=== PATIENT | female | born 1995 | race Caucasian/White ===

== ENCOUNTER 2022-09-28 13:46 | Emergency (ER) | payer OTHER, SELFPAY ==
[2022-09-28 13:53] VITALS: BP 116/76; PULSE 111; RESP 18; TEMP 37; O2SAT 100
[2022-09-28 13:57] VITALS: BP 116/76; PULSE 111; RESP 18; TEMP 37; O2SAT 100
--- NOTE | 2022-09-28 14:05 | ED.FEMALEGU ---
HPI - Female Genitourinary General Chief complaint: Urogenital-Female Stated complaint: Poss Uti Time Seen by Provider: 09/28/22 14:06 Source: patient, RN notes reviewed and old records reviewed Mode of arrival: ambulatory Limitations: no limitations History of Present Illness HPI Narrative: 27 [facility] of OF 5 DAYS DURATION OF URINARY BURNING,URGENCY, INABILITY TO EMPTY BLADDER AND URINE ODOR. PATIENT REPORTS THAT SHE has not taken anything OTC for her symptoms. Patient reports that she does have a history or UTI's.Patient reports no vaginal discharge or any concern for STD exposure. Patient denies any fevers chills or sweats or any nausea vomiting or diarrhea. Patient has not taken any AZO for her symptoms. MD elicited complaint: UTI Pertinent past history: other (previous UTI's) Onset (ago): day(s) (5) Location of symptoms: urethra Severity scale (1-10): 4 Vaginal discharge: none Vaginal bleeding: none Treatment prior to arrival: none Related Data Home Medications Medication Instructions Recorded Confirmed aripiprazole 15 mg tablet mg 09/28/22 venlafaxine 150 mg mg PO 09/28/22 capsule,extended release 24 hr Allergies Allergy/AdvReac Type Severity Reaction Status Date / Time amoxicillin [From Augmentin] Allergy Unknown Verified 09/28/22 13:56 clavulanic acid Allergy Unknown Verified 09/28/22 13:56 [From Augmentin] morphine Allergy Unknown Verified 09/28/22 13:56 Review of Systems Review of Systems: CONSTITUTIONAL: Denies fever, chills, or sweats. CARDIOVASCULAR: Denies chest pain, palpitations, or edema. RESPIRATORY: Denies cough or dyspnea. GASTROINTESTINAL: Denies abdominal pain, nausea, vomiting, or diarrhea. GENITOURINARY: Reports dysuria, frequency, urgency. Denies flank pain or hematuria, reports odorous urine SKIN: Denies rash or itching. MUSCULOSKELETAL: Denies back pain or myalgia. Denies CVA tenderness NEUROLOGIC: Denies headache All systems reviewed & are unremarkable except as noted in HPI and below PMFSH Past Medical History Medical History (Updated 09/29/22 @ 09:46 by Pamela Aragon NP) Anxiety and depression Surgical History Surgical History (Updated 09/28/22 @ 14:30 by Pamela Aragon NP) History of dilatation and curettage History of surgery on arm right upper arm surgical repair of injury History of tonsillectomy and adenoidectomy Social History Social History (Updated 09/28/22 @ 20:22 by Pamela Aragon NP) Smoking status: Unknown if ever smoked Additional smoking assessment comments: states does not smoke cigarettes or vape Alcohol intake: unknown Alcohol use details: states no alcohol use Substance use: current Substance use type: marijuana Gender identity (if verbalized by the patient): Female Comments At time of signature, agree with nursing past medical, surgical, social and family history. There is no relevant family history pertinent to the presenting complaint Exam Narrative: GENERAL: Well-appearing, well-nourished, and in no acute distress. HEAD: Normocephalic, atraumatic. NECK: Supple. no lymphadenopathy CHEST: Clear to auscultation. No respiratory distress.sao2 100% ON ROOM AIR HEART: Regular rate and rhythm. No murmur heard. Normal peripheral pulses. ABDOMEN: Soft, nontender on palpation, nondistended, normal active bowel sounds. No CVA tenderness, positive for burning, urgency, and feels like not emptying bladder, odorous urine EXTREMITIES: Normal range of motion. No edema. SKIN: Warm, dry, no rash. NEURO: No focal deficits. Alert and oriented x3. Course Course Emergency Course: Patient is aware of diagnosis, understands and agrees to treatment plan.? Anticipatory guidance given.? Patient agrees to follow-up as directed and is aware of reasons to seek care at the emergency department. Portions of this record may have been created with voice recognition software
== END 2022-09-28 14:17 | disposition home or self-care (01) ==
PROVIDERS: Emergency Provider Registered Nurse
DX: N39.0 Urinary tract infection, site not specified (principal); F12.90 Cannabis use, unspecified, uncomplicated
CPT/HCPCS: 81003; 87077; 87086; 87186; 99213; G0463

== ENCOUNTER 2023-07-10 12:43 | Emergency (ER) | payer OTHER, SELFPAY ==
[2023-07-10 12:52] VITALS: BP 126/78; PULSE 100; RESP 16; TEMP 37.4; O2SAT 100
--- NOTE | 2023-07-10 13:04 | ED.FEMALEGU ---
HPI - Female Genitourinary General Chief complaint: ASP WEB DEVELOPER Stated complaint: Toothache/STD Expousre Time Seen by Provider: 07/10/23 13:10 Source: patient Mode of arrival: ambulatory History of Present Illness HPI Narrative: 27-year-old female presented for 2 complaints. She reports right upper dental pain x 3 days. he reports a history of poor dentition due to drug use. Says she is scheduled with dentist. Has taken ibuprofen. Also, patient reports vaginal itching and urinary hesitation x2 days. Patient is currently on menses. Endorses unprotected sexual activity with new partner and would like std testing. denies hematuria, nausea, vomiting, abdominal pain, flank pain, constipation, diarrhea, fevers or chills. Related Data Allergies Allergy/AdvReac Type Severity Reaction Status Date / Time amoxicillin [From Augmentin] Allergy Unknown Verified 09/28/22 13:56 clavulanic acid Allergy Unknown Verified 09/28/22 13:56 [From Augmentin] morphine Allergy Unknown Verified 09/28/22 13:56 Review of Systems Review of Systems: CONSTITUTIONAL: Denies body aches, fever, chills ENT: Denies rhinorrhea, congestion, sore throat, or otalgia. Reports dental pain CARDIOVASCULAR: Denies chest pain, palpitations RESPIRATORY: Denies cough or dyspnea. : reports vaginal itching, hesitancy SKIN: Denies rash, or wounds. MUSCULOSKELETAL: Denies myalgia. NEUROLOGIC: Denies headache, numbness, tingling, or weakness. [facility] Past Medical History Medical History Anxiety and depression Surgical History Surgical History History of dilatation and curettage History of surgery on arm right upper arm surgical repair of injury History of tonsillectomy and adenoidectomy Social History Social History Smoking status: Unknown if ever smoked Additional smoking assessment comments: states does not smoke cigarettes or vape Alcohol intake: unknown Alcohol use details: states no alcohol use Substance use: current Substance use type: marijuana Gender identity (if verbalized by the patient): Female Comments At time of signature, I have reviewed and agree with nursing past medical, surgical, social and family history unless otherwise noted. Please see nursing chart for further information. There is no relevant family history pertinent to the presenting complaint Exam Narrative: GENERAL: Appears in pain; no acute distress. EYES: EOMI. No redness or drainage. Conjunctivae normal. ENT: Dental pain location of #6--7, broken teeth to gum line, gums with erythema, mild swelling. Poor dentition throughout. Mucous membranes pink and moist. TMs normal bilaterally. Throat normal. Uvula midline. no dysphagia, odynophagia, dysphonia, or dyspnea. NECK: Normal AROM. No lymphadenopathy. No induration below mandible CHEST: No respiratory distress. Clear to auscultation. HEART: Regular rate and rhythm. No murmur appreciated. SKIN: Warm, dry, no rash. Normal skin turgor. NEURO: No focal deficits. Alert and oriented x3. Gait steady. Course Course Emergency Course: Patient is aware of diagnosis, understands and agrees to treatment plan. Anticipatory guidance given. Patient agrees to follow-up as directed and is aware of reasons to seek care at the emergency department. Portions of this record may have been created with voice recognition software Level of Care: Express Care Visit Vital Signs Vital signs: Vital Signs Temperature 99.3 F 07/10/23 12:52 Pulse Rate 100 07/10/23 12:52 Respiratory Rate 16 07/10/23 12:52 Blood Pressure 126/78 07/10/23 12:52 Pulse Oximetry 100 07/10/23 12:52 Oxygen Delivery Room Air 07/10/23 12:52 Temperature 99.3 F 07/10/23 12:52 Pulse Rate 100 07/10/23 12:52 Respiratory Rate 16 07/10/23 12:52 Blood P
[2023-07-10 20:15] LABS: Trichomonas Vag PCR NOT DETECTED (NOT DETECTE)
[2023-07-10 20:40] LABS: Chlamydia trachomatis NOT DETECTED (NOT DETECTE); Neisseria gonorrhoeae PCR NOT DETECTED (NOT DETECTE)
== END 2023-07-10 13:30 | disposition home or self-care (01) ==
PROVIDERS: Emergency Provider Nurse Practitioner Family
DX: K04.7 Periapical abscess without sinus (principal); Z20.2 Contact with and (suspected) exposure to infections with a predominantly sexual mode of transmission; F12.90 Cannabis use, unspecified, uncomplicated
CPT/HCPCS: 81003; 87086; 87088; 87491; 87591; 87661; 99213; G0463

== ENCOUNTER 2024-06-29 13:03 | Emergency (ER) | payer OTHER, SELFPAY ==
[2024-06-29 13:04] VITALS: BP 117/70; PULSE 78; RESP 16; TEMP 36.6; O2SAT 100
--- OUTSIDE RECORDS SUMMARY | 2024-06-29 13:34 | XMS_ITS ---
Author Organization [facility] Address [address] [place] [address] Care Team Providers Care Mental Health Consultant Name Role Phone Isabel Eden Primary Care Provider REASON FOR VISIT last seen 07/14 Social History Sex Assigned At : Social History Observation Description Sex Assigned At Female Encounters Encounter Location Date Provider Diagnosis [address] [address] 12/16/2023 Isabel Eden Plan Of Treatment No Information Progress Notes * MALINA GRANGERNAYELIB:[birth year] (28 yo F)Acc No.[id number]:12/16/2023 UNLOCKED PROGRESS NOTE Patient: ALIYAH FENG Provider: CORDELL Coronel, PARACHUTIST/COMBATANT DIVER QUALIFIED, LOCKSTITCH COAT JOINER-C :1995 A ge:28 Y S ex:Female Date:12/16/2023 [facility] Subjective: * Chief Complaints: * 1 . Last seen 07/14. * Medical History: Objective: * Vitals: Assessment: Plan: * Treatment: * * Electronic signature of Litzy Eden , [id number] on 06/29/2024 at 01:34 PM CDT Sign off status: Pending * Provider: CORDELL Coronel, PARACHUTIST/COMBATANT DIVER QUALIFIED, LOCKSTITCH COAT JOINER-C Date: 1 Generated for Printi ng/Fajaquig/eTransmitting on: 0 06/29/2024 01:34 PM CDT
--- OUTSIDE RECORDS SUMMARY | 2024-06-29 13:34 | XMS_ITS ---
Author Organization [facility] Address [address] [place] [address] Care Team Providers Care Sheet Sewer Name Role Phone Isabel Eden Primary Care Provider [phone] Tamera Leyva [phone] REASON FOR VISIT isabel B / 3 mo Social History Sex Assigned At : Social History Observation Description Sex Assigned At Female Encounters Encounter Location Date Provider Diagnosis [address] [address] 10/25/2023 Tamera Leyva Plan Of Treatment No Information Progress Notes * MALINA GRANGERNAYELIB:[birth year] (28 yo F)Acc No.[id number]:10/25/2023 UNLOCKED PROGRESS NOTE Patient: ALIYAH FENG Provider: Deion Leyva DNP, PMHNP-BC, INJECTION MOLDING MACHINE OPERATOR :1995 A ge:28 Y S ex:Female Date:10/25/2023 Address:[address] [place] Pcp:Isabel Eden Subjective: * Chief Complaints: * 1 . isabel B / 3 mo. * Medical History: Objective: * Vitals: Assessment: Plan: * Treatment: * Recommended Wellness and Pre vention Guidelines: * S tatus A lert L ast Done N ext Due A ction Taken N ONCOMPLIANT C ervical cancer screening - 0 10/25/2023 - N ONCOMPLIANT H IV screening - 0 10/25/2023 - * * Electronic signature of Danni Leyva on 06/29/2024 at 01:33 PM CDT Sign off status: Pending * Provider: Deion Leyva DNP, PMHNP-, INJECTION MOLDING MACHINE OPERATOR Date: 0 10/25/2023 Generated for Printing/Faxing/eTransmitting on: 0 06/29/2024 01:33 PM CDT
--- OUTSIDE RECORDS SUMMARY | 2024-06-29 13:34 | XMS_ITS ---
Author Organization [facility] Address [address] [place] [address] Care Team Providers Care Baby Attendant Name Role Phone Isabel Eden Primary Care Provider [phone] Tamera Leyva [phone] REASON FOR VISIT Isabel B/3 mo Medications Medication SIG (Take, Route, Frequency, Duration) Notes Start Date End Date Status Effexor XR 150 MG 1 capsule with food Orally Once a day for 30 days Active hydrOXYzine Pamoate 25 MG 1-2 capsules Orally Twice daily for 30 days As needed 07/15/2023 Active Abilify 15 MG 1 tablet Orally Once a day for 30 days Active Multivitamin - 1 tablet Orally Once a day for 30 days Active Social History Sex Assigned At : Social History Observation Description Sex Assigned At Female Encounters Encounter Location Date Provider Diagnosis [address] [address] 11/15/2023 Tamera Leyva Bipolar 1 disorder F31.9 and Generalized anxiety disorder F41.1 Assessments Encounter Date Diagnosis (ICD Code) Assessment Notes Treatment Notes Treatment Clinical Notes Section Notes 11/15/2023 Bipolar 1 disorder (ICD-10 - F31.9) 11/15/2023 Generalized anxiety disorder (ICD-10 - F41.1) Plan Of Treatment No Information Progress Notes * DIEUDONNE GRANGERB:[birth year] (28 yo F)Acc No.[id number]:11/15/2023 UNLOCKED PROGRESS NOTE Patient: MICHELINE FENGANTHA Provider: Deion Leyva, WAGNER, PMHNP-BC, STAVE BOLT EQUALIZER :1995 A ge:28 Y S ex:Female Date:11/15/2023 Address:[address] [facility] Pcp:Isabel Eden Subjective: * Chief Complaints: * 1 . Isabel B/3 mo. * Medical History: * Medications: T aking Abilify 15 MG Tablet 1 tablet Orally Once a day , Taking Effexor XR 150 MG Capsule Extended Release 24 Hour 1 capsule with food Orally Once a day , Taking hydrOXYzine Pamoate 25 MG Capsule 1-2 capsules Orally Twice daily As needed, Taking Multivitamin - Tablet 1 tablet Orally Once a day Objective: * Vitals: Assessment: * Assessment: 1. B ipolar 1 disorder - F31.9 (Primary) 2 . G eneralized anxiety disorder - F41.1 Plan: * Treatment: * * Electronic signature of Danni Leyva on 06/29/2024 at 01:34 PM CDT Sign off status: Pending * Provider: Deion Leyva DNP, PMHNP-BC, STAVE BOLT EQUALIZER Date: 0 11/15/2023 Generated for Printing/Faxing/eTransmitting on: 0 06/29/2024 01:34 PM CDT
--- OUTSIDE RECORDS SUMMARY | 2024-06-29 13:34 | XMS_ITS | Patient Health Record ---
Author Organization [facility] Address [address] [place] [address] Care Team Providers Care Program Associate Name Role Phone Isabel Eden Primary Care Provider Tamera Leyva Unavailable [phone] Stephanie Tam Unavailable [phone] Allergies Allergen (clinical drug ingredient) Drug/Non Drug Allergy documented on EMR Reaction Allergy Type Onset Date Status amoxicillin / clavulanate Augmentin Unknown Drug Allergy Active Morphine and Related Unknown Drug Allergy Active Reason For Referral No Information Medications Medication SIG (Take, Route, Frequency, Duration) [...] day for 30 days Active Social History Tobacco Use: Social History Observation Description Date Details (start date - stop date) Current Smoker NA - NA Sex Assigned At : Social History Observation Description Sex Assigned At Female Dont use, Tobacco Use/Smoking Question Answer Notes Are you a current smoker How often do you smoke cigarettes? every day How many cigarettes a day do you smoke? 6-10 Problems Problem Type SNOMED Code ICD Code Onset Dates Problem Status W/U Status Risk Notes Problem Generalized anxiety disorder (79998944) Generalized anxiety disorder (F41.1) Active confirmed Problem Bipolar 1 disorder (093833579) Bipolar 1 disorder (F31.9) Active confirmed Vital Signs Heart Rate 90 /min 07/15/2023 Blood pressure diastolic 72 mm Hg 07/15/2023 Oximetry 96 % 07/15/2023 Height 5ft 5in in 07/15/2023 Blood pressure systolic 104 mm Hg 07/15/2023 Weight 153 lb 6 oz lbs 07/15/2023 Encounters Encounter Location Date Provider Diagnosis [facility] [place] [address] 07/15/2023 Isabelurbano Mantillaan Generalized anxiety disorder F41.1 ; Bipolar 1 disorder F31.9 and Medication monitoring encounter Z51.81 Assessments Encounter Date Diagnosis (ICD Code) Assessment Notes Treatment Notes Treatment Clinical Notes Section Notes 07/15/2023 Generalized anxiety disorder (ICD-10 - F41.1) discussed r/b/se of medications. 07/15/2023 Bipolar 1 disorder (ICD-10 - F31.9) client reports was doing well with medications, but stopped Abilify, restarting. 07/15/2023 Medication monitoring encounter (ICD-10 - Z51.81) 07/15/2023 Other Courtesy fills- to f/u with PCP/OBGYN. Reasons, potential benefits, potential risks, interactions and side effects of all medications were discussed. The Patient/Guardian asked appropriate questions, appeared to understand the answers, and decided to accept the treatment and continue being followed. Alternatives and expected course without treatment were reviewed. The Patient/Guardian is aware of the need to contact the office or return for an earlier appointment if any problems or concerns arise. May also contact the 24-hour crisis hotline (R), refer to the closest emergency room or call 911 if new symptoms arise of existing symptoms worsen. The Patient/Guardian is aware that this would apply to symptoms like: suicidal ideation, homicidal ideation, high risk behaviors, manic symptoms, psychotic symptoms, physical symptoms, or any other symptoms that may be dangerous to self or others. Greater than 50% of time spent on coordination and counseling where psychopharmacology as well as psychotherapeutic interventions were discussed along with review of treatments in the past. Education provided concerning need for adequate hydration. Patient/Guardian verbalized understanding of education, treatment plan and follow up. Plan Of Treatment No Information Insurance Providers Payer Name Payer Address Payer Phone Subscriber Number Group Number Insured Name Patient Relationship to Insured Coverage Start Date Coverage End Date [employer] [address] [place] [phone] [id number] ALIYAH GRANGER Self - patient is the insured [employer] [address] [place] [phone] [id number] ALIYAH GRANGER Self - patient is the insured 2 Medical (General) History Medical History History ICD Code bipolar disorder anxiety depression OCD ADHD Surgical History Surgery Date(Month/Year) D and c section tonsillectomy and adenoidectomy Hospitalization History Reason Date(Month/Year) Roselyn [facility]AR 2017 Gabe goel 3
[2024-06-29 14:37] VITALS: BP 101/68; PULSE 81; RESP 19; O2SAT 100
--- NOTE | 2024-06-29 15:24 | ED_ITS ---
HPI - General Adult General Chief complaint: Unspecified Stated complaint: I have got infection through my whole body' Time Seen by Provider: 06/29/24 14:35 History of Present Illness HPI narrative: Patient is a 28-year-old female presenting with concerns for infection. States that her right breast has been red and swollen for the last 2-3 days. She also has some scabbing from picking on her chin as well as a scab on her left thigh with surrounding redness and some drainage. States that her left pointer finger became swollen this morning she thinks is related to a cut on the side of it. No fevers or vomiting. No chest pain, shortness of breath, abdominal pain, diarrhea. No further concerns. Related Data Allergies Allergy/AdvReac Type Severity Reaction Status Date / Time amoxicillin (From Augmentin) Allergy Unknown Verified 06/29/24 13:04 clavulanic acid (From Allergy Unknown Verified 06/29/24 13:04 Augmentin) morphine Allergy Unknown Verified 06/29/24 13:04 Review of Systems 2 Review of Systems: All systems reviewed & are unremarkable except as noted in HPI and below PMFSH Past Medical History Medical History Anxiety and depression Surgical History Surgical History History of surgery on arm right upper arm surgical repair of injury History of dilatation and curettage History of tonsillectomy and adenoidectomy Social History Social History Smoking status: Unknown if ever smoked Additional smoking assessment comments: states does not smoke cigarettes or vape Alcohol intake: unknown Alcohol use details: states no alcohol use Substance use: current Substance use type: marijuana Gender identity (if verbalized by the patient): Female Exam 2 Narrative: GENERAL: Nontoxic, no acute distress, pleasant cooperative HEAD: Normocephalic, atraumatic. EYES: PERRLA and EOMI. ENT: Mucous membranes moist. NECK: Supple. CHEST: Clear to auscultation. No respiratory distress. HEART: Regular rate and rhythm ABDOMEN: Soft, nontender, nondistended EXTREMITIES: Normal range of motion SKIN: Warm, dry, erythema, warmth, tenderness of right breast, no areas of fluctuance; scab lower left thigh with small amount of purulent drainage and surrounding redness; left pointer finger with abrasion laterally with associated swelling/redness, no flexor tenderness; ROM intact NEURO: No focal deficits. Alert and oriented x3. PSYCH: Normal mood and affect. Course Vital Signs Vital signs: Vital Signs Temperature 97.9 F 06/29/24 13:04 Pulse Rate 78 06/29/24 13:04 Respiratory Rate 16 06/29/24 13:04 Blood Pressure 117/70 06/29/24 13:04 Pulse Oximetry 100 06/29/24 13:04 Oxygen Delivery Room Air 06/29/24 13:04 Temperature 97.9 F 06/29/24 13:04 Pulse Rate 71 06/29/24 15:48 Respiratory Rate 13 06/29/24 15:48 Blood Pressure 111/72 06/29/24 15:48 Pulse Oximetry 98 06/29/24 15:48 Oxygen Delivery Room Air 06/29/24 13:04 Medical Decision Making MDM Narrative Medical decision making narrative: 28-year-old female presenting with multiple skin lesions that she is concerned are infected. Vitals are within normal limits. Patient is nontoxic and in no acute distress. She does have several areas of what appear to be very of skin infections. She has an area of folliculitis on her chin, a developing cellulitis on her right breast, a scab with some purulent drainage on her left thigh. Blood work is reassuring. No leukocytosis. No renal dysfunction. Patient is tolerating p.o. intake and and would like to go home. I think this is reasonable. Will send in for p.o. doxy and Keflex. Recommend PCP follow-up. Appropriate return precautions given. Discharged in stable condition. Vital Signs Vital Signs: Vital Signs Temperature 97.9 F 06/29/24 13:04 Pulse Rate 78 06/29/24 13:04 Respiratory Rate 16 06/29/24 13:04 Blood Pressure 117/70 06/29/24 13:04 Pulse Oximetry 100 06/29/24 13:04 Oxygen Delivery Room Air 06/29/24 13:04 Temperature 97.9 F 06/29/24 13:04 Pulse Rate 71 06/29/24 15:48 Respiratory Rate 13 06/29/24 15:48 Blood Pressure 111/72 06/29/24 15:48 Pulse Oximetry 98 06/29/24 15:48 Oxygen Delivery Room Air 06/29/24 13:04 Lab Data 06/29/24 15:46 06/29/24 15:46 Labs: Lab Results 06/29/24 Range/Units 15:46 WBC 8.7 (4.5-10.0) K/mm3 RBC 4.06 L (4.2-5.4) M/mm3 Hgb 12.0 (12.0-15.0) g/dL Hct 37.2 (37.0-47.0) % MCV 91.6 (80-100) fl MCH 29.6 (26-34) pg MCHC 32.3 (32-36) g/dl RDW 13.7 (11.5-14.5) % Plt Count 217 (150-375) k/mm3 MPV 11.9 H (7.4-10.4) fl Immature Gran % (Auto) 0.3 (0-0.5) % Neut % (Auto) 69.3 (45.5-73.1) % Lymph % (Auto) 22.6 (18.3-44.2) % [place] % (Auto) 7.3 (2.6-8.5) % Eos % (Auto) 0.2 (0-4.4) % Baso % (Auto) 0.3 (0.2-1.2) % Lymph # (Auto) 1.96 (0.9-3.2) K/mm3 [place] # (Auto) 0.6 (0.1-0.6) K/mm3 Eos # (Auto) 0.0 (0-0.3) K/mm3 Baso # (Auto) 0.0 (0.0-0.1) K/mm3 Abs Immat Gran (auto) 0.03 (0.00-0.031) K/mm3 Absolute Neuts (auto) 6.0 (1.3-6.7) K/mm3 Absolute Nucleated RBC 0.000 (0.0-0.012) K/mm3 Nucleated RBC % 0.0 (0.0-0.2) % Sodium 135 L (137-145) mmol/L Potassium 4.1 (3.4-5.0) mmol/L Chloride 99 (98-107) mmol/L Carbon Dioxide 28 (22-30) mmol/L Anion Gap 8 (4-12) mmol/L BUN 15 (7-17) mg/dL Creatinine 0.71 (0.7-1.0) mg/dL Estim Creat Clear Calc 89 ml/min Estimated GFR > 60 (59 - ) Glucose 115 H (65-110) mg/dL Calcium 8.6 (8.4-10.2) mg/dL Critical Care Time Critical Care Time Critical Care Time: No Discharge Plan Discharge Clinical Impression: Cellulitis of breast, Cellulitis of left leg, Folliculitis Patient Disposition: Home Condition: Stable Instructions: Antibiotic Form, Cellulitis (ED) Additional Instructions: Please complete the antibiotics as prescribed and follow-up with primary care. If your symptoms worsen or other concerning symptoms arise, please return to the ER. Patient Language: Lao Prescriptions: New cephalexin 500 mg capsule 500 mg PO Q6H 7 Days Qty: 28 0RF doxycycline hyclate 100 mg tablet 100 mg PO BID 7 Days Qty: 14 0RF No Action ibuprofen 800 mg tablet 800 mg PO TID PRN (Reason: pain) Qty: 15 0RF lidocaine HCl [Lidocaine Viscous] 2 % solution 1 applic mucous membrane TID PRN (Reason: pain) Qty: 100 0RF Rx Instructions: apply with cotton swab to site of pain cefdinir 300 mg capsule 300 mg PO Q12H Qty: 14 0RF fluconazole 150 mg tablet 150 mg PO DAILY Qty: 2 0RF Follow-up/Referrals: Wang Avendano MD [Physician] -
--- OUTSIDE RECORDS SUMMARY | 2024-06-29 15:24 | XMS_ITS | Clinical Summary ---
Author Organization [facility] Address [address] [place] [id number] Care Team Providers Care Diesel Scoop Operator Name Role Phone Luiz FERRARI MD, Williams Moore Primary Care Provid er Luiz FERRARI MD, Williams Moore Unavailable [phone]- [phone] Allergies Active Allergy Reactions Criticality Noted Date Comments Amoxicillin-Pot Clavulanate Hives Medium 11/11/19 18 Morphine Hives Medium 11/10/2017 Morphine Itching Low 06/12/2023 Medications naproxen (NAPROSYN) 500 mg tablet Take 1 tablet (500 mg total) by mouth 2 (two) times a day as needed for pain. Take with food. 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 Denies 02/04/2024 Comments No Sex and Gender Information Value Date Recorded Sex Assigned at Not on file Legal Sex Female 6:59 AM REGULATORY COMPLIANCE MANAGER Gender Identity Not on file Sexual Orientation Not on file Obstetrics History Last Filed Vital Signs Vital Sign Reading Time Taken Comments Blood Pressure 107/62 02/04/2024 8:24 AM REGULATORY COMPLIANCE MANAGER Pulse 90 02/04/2024 8:24 AM REGULATORY COMPLIANCE MANAGER Temperature 37.1 C (98.8 F) 02/04/2024 7:23 AM REGULATORY COMPLIANCE MANAGER Respiratory Rate 16 02/04/2024 8:24 AM REGULATORY COMPLIANCE MANAGER Oxygen Saturation 96% 02/04/2024 7:23 AM REGULATORY COMPLIANCE MANAGER Inhaled Oxygen Concentration - - Weight 6.804 kg (15 lb) 02/04/2024 12:41 AM REGULATORY COMPLIANCE MANAGER Height 162.6 cm (5' 4 ) 02/04/2024 12:41 AM REGULATORY COMPLIANCE MANAGER Body Mass Index 2.57 02/04/2024 12:41 AM REGULATORY COMPLIANCE MANAGER Plan of Treatment Health Maintenance Due Date Last Done Comments Cervical Cancer Screening 1996 Depression Screening 1996 Regular Well Visit/Exam 18-64 2014 Pneumococcal vaccine <65 (1 of 2 - PCV) 08/05/2015 Influenza Vaccine (Season Ended) 2024 12/02/2009, 01/13/2008 DTaP/Tdap/Td Vaccine (8 - Td or Tdap) 06/20/2032 06/20/2022, 09/16/2018, 08/17/2010, Additional history exists Hepatitis B Screening Completed 06/24/1997 , 1996, 1996 Varicella Vaccines Completed 12/25/2008, 11/22/1997 Hepatitis C Screening Completed 01/04/2024 HPV Vaccines Aged Out No longer eligi ble based on patient's age to complete this topic Procedures Procedure Name Priority Date/Time Associated Diagnosis Comments HEPATITIS C ANTIBODY Routine 01/04/2024 4:46 AM REGULATORY COMPLIANCE MANAGER from Last 3 Months or Most Recently Relevant to Health Maintenance Results * Hepatitis C antibody Blood (01/04/2024 4:46 AM REGULATORY COMPLIANCE MANAGER) Hep C Ab Nonreactive Nonreactive Comment: Interpretive Data Nonreactive: Antibodies to HCV not detected. Does NOT exclude the possibility of recent exposure to HCV. Equivocal: Equivocal for HCV antibodies. Supplemental molecular testing will be automatically performed to determine infection status in accordance with current CDC screening recommendations. Reactive: Positive for HCV antibodies. This may represent current or past HCV infection. Supplemental molecular testing will be automatically performed to determine current infection status in accordance with current CDC screening recommendations. Interpretive data was last revised on 2019. Testing performed by: [facility], [address] [place] [address]., [id number] Blood 01/04/2024 4:46 AM REGULATORY COMPLIANCE MANAGER 01/04/2024 1:29 PM REGULATORY COMPLIANCE MANAGER us Mindy Weston MD LAB MICROBIOLOGY - [facility] ORDERABLES Final Result [facility] ([place]) 1 [facility] Department [place] [address] from Last 3 Months or Most Recently Relevant to Health Maintenance Insurance [facility] Advance Directives For more information, please contact: [phone] * Full Code (Latest Code Status on File) Date Activated Date Inactivated Comments 01/03/2024 4:21 PM 01/05/2024 1:14 PM Care Teams Diesel Scoop Operator Relationship Specialty Start Date End Date Williams Dee II, MD [address] [address] PCP - General Family Medicine 4/17/24 Williams Dee II, MD [address] [place] [address] Family Medicine 06/12/23
--- OUTSIDE RECORDS SUMMARY | 2024-06-29 15:24 | XMS_ITS | Referral Summary ---
Author Organization [facility] Address [address] [place] [id number] Care Team Providers Care Paving And Surfacing Labourer Name Role Phone Luiz FERRARI MD, Williams Moore Primary Care Provid er Luiz FERRARI MD, Williams Moore Unavailable [phone]- [phone] Allergies Active Allergy Reactions Criticality Noted Date [...] 03/16/2015 Bronchial asthma 03/16/2015 Cannabis abuse 03/16/2015 Social History Tobacco Use Types Packs/Day Years [...] on file Legal Sex Female 6:59 AM PLANOGRAPH OPERATOR Gender Identity Not on file Sexual Orientation Not on file Last Filed Vital Signs Vital Sign Reading Time Taken Comments Blood Pressure 107/62 02/04/2024 8:24 AM PLANOGRAPH OPERATOR Pulse 90 02/04/2024 8:24 AM PLANOGRAPH OPERATOR Temperature 37.1 C (98.8 F) 02/04/2024 7:23 AM PLANOGRAPH OPERATOR Respiratory Rate 16 02/04/2024 8:24 AM PLANOGRAPH OPERATOR Oxygen Saturation 96% 02/04/2024 7:23 AM PLANOGRAPH OPERATOR Inhaled Oxygen Concentration - - Weight 6.804 kg (15 lb) 02/04/2024 12:41 AM PLANOGRAPH OPERATOR Height 162.6 cm (5' 4 ) 02/04/2024 12:41 AM PLANOGRAPH OPERATOR Body Mass Index 2.57 02/04/2024 12:41 AM PLANOGRAPH OPERATOR Plan of Treatment Not on file Procedures Procedure Name Priority Date/Time Associated Diagnosis Comments HEPATITIS C ANTIBODY Routine 01/04/2024 4:46 AM PLANOGRAPH OPERATOR from Last 3 Months or Most Recently Relevant to Health Maintenance Results * Hepatitis C antibody Blood (01/04/2024 4:46 AM PLANOGRAPH OPERATOR) Hep C Ab Nonreactive Nonreactive Comment: Interpretive [...] last revised on 2019. Testing performed by: [facility], [address] [place] [address], [place]., [address] Blood 01/04/2024 4:46 AM PLANOGRAPH OPERATOR 01/04/2024 1:29 PM PLANOGRAPH OPERATOR us Mindy Weston MD LAB MICROBIOLOGY - [facility] ORDERABLES Final Result [facility] ([place]) 1 [facility] Department [place] [address] from Last 3 Months or Most Recently Relevant to Health Maintenance Insurance [facility] Advance Directives For more information, please contact: [phone] * Full Code (Latest Code Status on File) Date Activated Date Inactivated Comments 01/03/2024 4:21 PM 01/05/2024 1:14 PM Care Teams Paving And Surfacing Labourer Relationship Specialty Start Date End Date Williams Dee II, MD [address] [place] [id number] PCP - General Family Medicine 06/12/23 Williams Dee II, MD [address] [place] [phone] Family Medicine 06/12/23
--- OUTSIDE RECORDS SUMMARY | 2024-06-29 15:24 | XMS_ITS | Clinical Summary ---
Author Organization [facility] Address [address] [place] [address] Phone Care Team Providers Care Infant Room Teacher Name Role Phone Luiz FERRARI MD, Williams Olsen Primary Care Provider [phone] Allergies Active Allergy Reactions Criticality Noted Date Comments Amoxicillin-Pot Clavulanate Hives 04/29/19 25 Morphine Anaphylaxis 01/10/2024 Medications polyethylene glycol (GLYCOLAX, MIRALAX) 17 g Pack Take 1 Packet by mouth daily. Dissolve in 4-8 oz of liquid. 90 Packet 4 Active ondansetron (ZOFRAN-ODT) 4 MG TABLET DISPERSIBLE Take 1 Tablet by mouth every 8 hours as needed for Nausea - 1st line. 10 Tablet 5 Active Encounters Date Type Department Care Team Description 04/28/2024 9:01 PM DAIRY HELPER - 04/28/2024 10:41 PM DAIRY HELPER Emergency [facility] Emergency [address] [place] [address] Brian Oquendo MD Acute cystitis without hematuria Discharge Disposition: Discharged to home or Selfcare 04/28/2024 Travel from Last 3 Months Social History Tobacco Use Types Packs/Day Years Used Date Smoking Tobacco: Never Assessed Comments Unknown Sex and Gender Information Value Date Recorded Sex Assigned at Not on file Legal Sex Female 1:53 PM DAIRY HELPER Gender Identity Not on file Sexual Orientation Not on file Last Filed Vital Signs Vital Sign Reading Time Taken Comments Blood Pressure 127/60 04/28/2024 10:30 PM DAIRY HELPER Pulse 66 04/28/2024 10:30 PM DAIRY HELPER Temperature 36.7 C (98.1 F) 04/28/2024 10:30 PM DAIRY HELPER Respiratory Rate 16 04/28/2024 10:30 PM DAIRY HELPER Oxygen Saturation 100% 04/28/2024 10:30 PM DAIRY HELPER Inhaled Oxygen Concentration - - Weight 56.7 kg (125 lb) 04/28/2024 8:59 PM DAIRY HELPER Height 162.6 cm (5' 4 ) 04/28/2024 8:59 PM DAIRY HELPER Body Mass Index 21.46 04/28/2024 8:59 PM DAIRY HELPER Plan of Treatment Health Maintenance Due Date Last Done Comments Hepatitis C Virus (HCV) Screening 1996 Pap Smear 2017 Influenza Immunization (#1) 2023 SARS-COV-2 Immunization ( season) 2023 Respiratory Syncytial Virus (RSV) Immunization (Adult) (1 - 1-dose 75+ series) 08/05/2071 Hepatitis B Immunization Completed 998, 1996, 1996 Meningococcal Immunization (ACWY) Aged Out 08/17/2010 No longer eligible b ased on patient's age to complete this topic TdaP Immunization Completed 06/20/2022, 08/17/2010 Pneumococcal Immunization Combined Aged Out No longer eligible b ased on patient's age to complete this topic Rotavirus Immunization Aged Out No lo nger eligible based on patient's age to complete this topic Procedures Procedure Name Priority Date/Time Associated Diagnosis Comments UR TEST QUAL STAT 04/28/2024 9:17 PM DAIRY HELPER URINALYSIS REFLEX IF INDICATED BY ABNORMAL RESULTS STAT 04/28/2024 9:17 PM DAIRY HELPER CULTURE, URINE STAT 04/28/2024 9:17 PM DAIRY HELPER from Last 3 Months Results * (ABNORMAL) URINALYSIS REFLEX IF INDICATED BY ABNORMAL RESULTS (04/28/2024 9:17 PM DAIRY HELPER) SPECIFIC GRAVITY 1.010 1.003 - 1.030 04/28/2024 10:08 PM DAIRY HELPER [facility] URINE PH 8.0 5.0 - 9.0 04/28/2024 10:08 PM DAIRY HELPER [facility] WBC ESTERASE 100 /uL(A) Negative 04/28/2024 10:08 PM DAIRY HELPER [facility] NITRITE Negative Negative 04/28/2024 10:08 PM [facility] PROTEIN, RANDOM URINE 30 mg/dL(A) Negative 04/28/2024 10:08 PM [facility] URINE GLUCOSE, QUAL Negative Negative 04/28/2024 10:08 PM [facility] URINE KETONES 5 mg/dL(A) Negative 04/28/2024 10:08 PM [facility] UROBILINOGEN Normal Normal mg/dL 04/28/2024 10:08 PM [facility] URINE BLOOD Negative Negative kaleigh/ul 04/28/2024 10:08 PM [facility] URINALYSIS COLOR Yellow 04/29/19 10:08 PM [facility] URINALYSIS CLARITY Very Cloudy 04/28/2024 10:08 PM [facility] WBC (Urine) 6-10(A) Negative, 0-5 /hpf 04/28/2024 10:08 PM [facility] URINE RBC'S 0-2 Negative, 0-2 /hpf 04/28/2024 10:08 PM DAIRY HELPER [facility] EPITHELIAL CELLS Moderate amount /lpf 04/28/2024 10:08 PM [facility] BACTERIA, URINE Few(A) Negative /hpf 04/28/2024 10:08 PM [facility] CRYSTALS Amorphous urates 04/28/2024 10:08 PM [facility] Urine URINE SPECIMEN OBTAINED BY CLEAN CATCH PROCEDURE / Unknown Non-Phlebotomy Collection / Unknown 04/28/2024 9:17 PM DAIRY HELPER 04/28/2024 9:33 PM DAIRY HELPER us Brian Oquendo MD URINE ORDERABLES Final Res ult [facility] [address] [place] [address] * Ur Test Qual (04/28/2024 9:17 PM DAIRY HELPER) PREG TEST,MONOCLONA L Negative 04/28/2024 9:59 PM DAIRY HELPER [facility] Urine URINE SPECIMEN OBTAINED BY CLEAN CATCH PROCEDURE / Unknown Non-Phlebotomy Collection / Unknown 04/28/2024 9:17 PM DAIRY HELPER 04/28/2024 9:33 PM DAIRY HELPER Brian Oquendo MD URINE ORDERABLES Final Res ult [facility] [address] [place] [address] * Culture, Urine (04/28/2024 9:17 PM DAIRY HELPER) CULTURE RESULTS Mixed Growth of One or More Distal Urethral Contaminants 04/30/2024 11:09 AM DAIRY HELPER [facility] Urine URINE SPECIMEN OBTAINED BY CLEAN CATCH PROCEDURE / Unknown Non-Phlebotomy Collection / Unknown 04/28/2024 9:17 PM DAIRY HELPER 04/28/2024 9:33 PM DAIRY HELPER Brian Oquendo MD MICROBIOLOGY - GENERAL ORD ERABLES Final Result [facility] [address] [place] [address], from Last 3 Months Insurance MEDICAID [place] Care Teams Infant Room Teacher Relationship Specialty Start Date End Date Williams Dee II, MD [address] [place] [address] PCP - General Family Medicine 01/10/24
[2024-06-29 15:48] VITALS: BP 111/72; PULSE 71; RESP 13; O2SAT 98
[2024-06-29 15:54] LABS: Basophils Percent Auto 0.3 % (0.2-1.2); Eosinophils Percent Auto 0.2 % (0-4.4); Hematocrit 37.2 % (37.0-47.0); Immature Granulocyte Absolute 0.03 K/mm3 (0.00-0.031); Immature Granulocyte Percent A 0.3 % (0-0.5); Lymphocytes Absolute Auto 1.96 K/mm3 (0.9-3.2); Lymphocytes Percent Auto 22.6 % (18.3-44.2); Mean Corpuscular HGB Conc 32.3 g/dl (32-36); Mean Corpuscular Hemoglobin 29.6 pg (26-34); Mean Corpuscular Volume 91.6 fl (80-100); Mean Platelet Volume 11.9 fl (7.4-10.4); Monocytes Absolute Auto 0.6 K/mm3 (0.1-0.6); Monocytes Percent Auto 7.3 % (2.6-8.5); Neutrophils Percent Auto 69.3 % (45.5-73.1); Platelet Count Result 217 k/mm3 (150-375); Red Blood Count 4.06 M/mm3 (4.2-5.4); Red Cell Distribution Width 13.7 % (11.5-14.5); White Blood Count 8.7 K/mm3 (4.5-10.0)
[2024-06-29] MEDS: CEPHALEXIN 500 MG CAPSULE PO (15:59)
[2024-06-29] MEDS: DOXYCYCLINE HYCLATE 100 MG TABLET PO (15:59)
[2024-06-29 16:06] LABS: Anion Gap 8 mmol/L (4-12); Blood Urea Nitrogen 15 mg/dL (7-17); Calcium 8.6 mg/dL (8.4-10.2); Carbon Dioxide 28 mmol/L (22-30); Chloride 99 mmol/L (98-107); Estimated CRCL calculation 89 ml/min; Estimated Glomerular Filt Rate > 60; Glucose 115 mg/dL (65-110); Potassium 4.1 mmol/L (3.4-5.0); Sodium 135 mmol/L (137-145)
[2024-06-29 19:00] VITALS: BP 111/78; PULSE 94; RESP 14; O2SAT 98
== END 2024-06-29 19:00 | disposition home or self-care (01) ==
PROVIDERS: Emergency Provider Emergency Medicine
DX: N61.0 Mastitis without abscess (principal); L03.116 Cellulitis of left lower limb; L73.9 Follicular disorder, unspecified; F41.8 Other specified anxiety disorders
CPT/HCPCS: 36415; 80048; 85025; 99283; A9270